=== PATIENT | female | born 1990 | race Two or more races ===

== ENCOUNTER 2017-10-19 09:25 | Emergency (ER) | payer MEDICAID ==
[~2017-10-19] VITALS: Ht 154.9 cm; Wt 119.7 kg
[2017-10-19 09:37] VITALS: Ht 154.9 cm; Wt 119.7 kg
[2017-10-19 12:45] VITALS: BP 122/68
== END 2017-10-19 12:45 | disposition home or self-care (01) ==
LOC: ED 09:25
DX: J11.1 Influenza due to unidentified influenza virus with other respiratory manifestations (principal); R11.2 Nausea with vomiting, unspecified
CPT/HCPCS: J1885; J2405; J7030

== ENCOUNTER 2017-12-28 12:19 | Emergency (ER) | payer MEDICAID ==
[~2017-12-28] VITALS: Ht 157.5 cm; Wt 120.7 kg
[2017-12-28 12:52] VITALS: Ht 157.5 cm; Wt 120.7 kg
[2017-12-28 13:28] LABS: BASOPHIL % 0.3 % (0-2); PLATELET COUNT 327 x10^3mcL (130-400); RED CELL DISTRIBUTION WIDTH 13.7 % (11.5-14.5)
[2017-12-28 14:01] LABS: CALCIUM 9.1 mg/dL (8.5-10.1); CARBON DIOXIDE 24.2 mmol/L (21-32); CHLORIDE SERUM 102 mmol/L (98-107); CREATININE SERUM 0.6 mg/dL (0.6-1.0); GFR1 > 60 mL/min; GLUCOSE SERUM 88 mg/dL (74-106); POTASSIUM SERUM 4.1 mmol/L (3.5-5.1); SODIUM SERUM 133 mmol/L (136-145)
[2017-12-28 14:06] LABS: ALBUMIN 3.5 g/dL (3.4-5.0); ALKALINE PHOSPHATASE 119 U/L (46-116); ALT/SGPT 27 U/L (14-59); AST/SGOT 14 U/L (15-37); BILIRUBIN TOTAL 0.41 mg/dL (0.20-1.00); LIPASE 108 IU/L (73-393); TOTAL PROTEIN, SERUM 7.8 g/dL (6.4-8.2)
[2017-12-28 14:30] LABS: UA SPECIFIC GRAVITY 1.015 (1.005-1.035); microscopic required? YES; urine erythrocyte NEGATIVE (NEGATIVE)
[2017-12-28 14:54] VITALS: BP 137/83
== END 2017-12-28 14:54 | disposition home or self-care (01) ==
LOC: ED 12:19
PROVIDERS: Emergency Medicine
DX: R10.11 Right upper quadrant pain (principal); E86.0 Dehydration; R11.2 Nausea with vomiting, unspecified; R42 Dizziness and giddiness; E66.9 Obesity, unspecified; Z68.42 Body mass index [BMI] 45.0-49.9, adult; Z87.19 Personal history of other diseases of the digestive system
CPT/HCPCS: J2405; J7030; Q0092

== ENCOUNTER 2018-07-26 18:00 | Emergency (ER) | payer MEDICAID ==
[~2018-07-26] VITALS: Ht 157.5 cm; Wt 102.1 kg
[2018-07-26 18:51] VITALS: Ht 157.5 cm; Wt 102.1 kg
[2018-07-26 22:07] VITALS: BP 129/86
== END 2018-07-26 22:03 | disposition home or self-care (01) ==
LOC: ED 18:00
DX: S93.402A Sprain of unspecified ligament of left ankle, initial encounter (principal); W10.9XXA Fall (on) (from) unspecified stairs and steps, initial encounter; Y93.9 Activity, unspecified; Y92.89 Other specified places as the place of occurrence of the external cause; Y99.8 Other external cause status

== ENCOUNTER 2020-03-31 10:57 | Emergency (ER) | payer MEDICAID ==
[~2020-03-31] VITALS: Ht 160 cm; Wt 84.8 kg
[2020-03-31 11:02] VITALS: BP 115/88
== END 2020-03-31 11:48 | disposition home or self-care (01) ==
LOC: ED 10:57
DX: H10.9 Unspecified conjunctivitis (principal); L03.213 Periorbital cellulitis